=== PATIENT | female | born 1945 | race Caucasian/White ===

== ENCOUNTER 2022-09-01 08:51 | Day surgery (SDC) | payer MEDICARE ==
[~2022-09-01] VITALS: Ht 160 cm; Wt 71.9 kg
[2022-09-01] MEDS ORDERED: NEURONTIN100 MG/CAP PO (09:17)
[2022-09-01] MEDS ORDERED: PROTONIX20 MG PO (09:18)
[2022-09-01] MEDS ORDERED: ZOCOR 20MG20 MG PO (09:19)
[2022-09-01] MEDS ORDERED: NORCO 325 MG-51 TAB PO (09:19)
[2022-09-01] MEDS ORDERED: PLAQUENIL 200M200 MG PO (09:20)
[2022-09-01] MEDS ORDERED: ZANAFLEX2 MG PO (09:21)
[2022-09-01] MEDS ORDERED: VITAMIN D31000 I1 PO (09:21)
[2022-09-01 09:23] VITALS: BP 139/62; PULSE 80; TEMP 97.1
[2022-09-01 10:20] VITALS: BP 124/64; PULSE 71; TEMP 97.1
--- NOTE | 2022-09-01 10:20 | NUR ---
1020 PATIENT RETURNS TO ROOM 4 VIA CART. PATIENT IS ALERT AND ORIENTED. PATIENT IS IN ROOM. PATIENT AMBULATES BACK TO RECLINER WITH THE ASSISTANCE OF 2 NURSES. RESPIRATIONS EVEN AND UNLABORED. VITAL SIGNS OBTAINED. NO C/O PAIN OR NAUSEA. 1025 PATIENT REQUEST A MUFFIN AND COFFEE. DOCTOR IN TO SPEAK WITH PATIENT AND PATIENT . 1040 THIS NURSE WENT OVER DISCHARGE INSTRUCTIONS. BOTH PATIENT AND PATIENT VERBALIZED UNDERSTANDING. 1045 DC IV FROM RIGHT FOREARM WITH NO DIFFICULTIES. 1050 PATIENT DRESSES SELF. 1055 PATIENT DISCHARGES FROM UNIT VIA WHEELCHAIR.
[2022-09-01 10:30] VITALS: BP 111/61; PULSE 71
[2022-09-01 10:45] VITALS: BP 127/51; PULSE 70
== END 2022-09-01 10:55 | disposition home or self-care (01) ==
LOC: SDCO 08:51
DX: Z12.11 Encounter for screening for malignant neoplasm of colon (principal); D12.4 Benign neoplasm of descending colon; K57.30 Diverticulosis of large intestine without perforation or abscess without bleeding; K64.0 First degree hemorrhoids; K62.89 Other specified diseases of anus and rectum; Z80.0 Family history of malignant neoplasm of digestive organs
CPT/HCPCS: J2704; J3010; J7120